=== PATIENT | female | born 1995 | race Caucasian/White ===

== ENCOUNTER 2019-03-12 16:06 | Inpatient (IN) | payer OTHER ==
[2019-03-12 17:26] VITALS: BMI 26.1
--- NOTE | 2019-03-12 18:06 | HP ---
CIWA Score - Admission Criteria OASAS Guidelines: Admission for Medically Managed Detox: Requires at least one of the followin. CIWA greater than 12 2. Seizures within the past 24 hours 3. Delirium tremens within the past 24 hours 4. Hallucinations within the past 24 hours 5. Acute intervention needed for co occurring medical disorder 6. Acute intervention needed for co occurring psychiatric disorder 7. Severe withdrawal that cannot be handled at a lower level of care (continued vomiting, continued diarrhea, abnormal vital signs) requiring intravenous medication and/or fluids 8. Admitting History and Physical - Admission History of Present Illness: 23 yo f w/ PMH juvenile epilepsy who comes to [facility] for ETOH rehab. She recently underwent detox at [facility] and was discharged today. The patient states that she drank 2x 6 packs of beer a day and an unknown amount of liquor 2-3 times per week since she was 13. The patient states that she has not blacked out in the past, but has had seizures while detoxing. Her last drink was on 03/07. The patient endorses smoking 2-3 blunts of marijuana 3 times per week while drinking since the age of 12. Her last use was 03/07. The patient has a history of epilepsy and is currently being followed by a Dr. Alley Olguin at [facility] for this. She gets her medication from [facility] ). Her medications have been verified from her prescription bottles as well as [facility] admission records. Per the patient, she was started on naltrexone during her most recent admission to [facility]. 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 Admission ROS [facility] Allergies/Adverse Reactions: Allergies Allergy/AdvReac Type Severity Reaction Status Date / Time No Known Allergies Allergy Verified 03/12/19 17:05 - Ebola screening Have you traveled outside of the country in the last 21 days: No Have you had contact with anyone from an Ebola affected area: No Do you have a fever: No - Review of Systems Respiratory: reports: No Symptoms reported Cardiac: reports: No Symptoms Reported GI: reports: No Symptoms Reported Musculoskeletal: reports: No Symptoms Reported Neuro: reports: No Symptoms reported Psychiatric: reports: No Sypmtoms Reported Patient History - Smoking Cessation Smoking history: Current every day smoker Have you smoked in the past 12 months: Yes Aproximately how many cigarettes per day: 15 Initiated information on smoking cessation: Yes 'Breaking Loose' booklet given: 03/12/19 - Substances abused Alcohol Substance route: Oral Frequency: 3-6 times per week Amount used: 2 packs / of six of beers/ mixing vodka/hennesy,not sure how much. Age of first use: 12 Date of last use: 03/06/19 Admission Physical Exam BHS - Vital Signs Vital Signs: Vital Signs - 24 hr 03/12/19 03/12/19 17:05 17:54 Temperature 97.5 F L 97.5 F L Pulse Rate 61 61 Respiratory 16 16 Rate Blood Pressure 92/63 92/63 - Physical General Appearance: Yes: Nourished HEENTM: Yes: EOMI, Normal ENT Inspection, Normocephalic, TOBIAS Respiratory: Yes: Chest Non-Tender, Lungs Clear, Normal Breath Sounds Neck: Yes: Trachea in good position Cardiology: Yes: Regular Rhythm, Regular Rate, S1, S2. No: JVD, Murmur, Gallop/ S3, Gallop/S4 Abdominal: Yes: Normal Bowel Sounds, Non Tender, Flat, Soft Neurological: Yes: banquet stewardess II-XII NML intact, Fully Oriented, Alert, Motor Strength 5/5, Normal Mood/Affect, Other (psychomotor slowing noted.) - Diagnostic (1) Alcohol dependence Current Visit: Yes Status: Acute (2) Epilepsy Current Visit: Yes Status: Acute Breathalyzer - Breathalyzer Breathalyzer: 0 Urine Drug Screen - Test Device Lot number: [id number] Expiration date: 10/11/20 - Control Is test valid?: Yes - Results Drug screen NEGATIVE: No Urine drug screen results: THC-Marijuana, BZO-Benzodiazepines Inpatient Rehab Admission - Rehab Decision to Admit Inpatient rehab admission?: Yes - Initial Determination Are CD services needed?: Yes Free of communicable disease: Yes Not in need of hospitalization: Yes - Rehab Admission Criteria Previous failed treatment: No Poor recovery environment: Yes Comorbidities: Yes Lacks judgement: Yes Patient is meeting Inpatient Rehab admission criteria:: Yes
--- NOTE | 2019-03-12 18:31 | PN ---
Teaching Attending Note Name of Resident: Mitchell Wright ATTENDING PHYSICIAN STATEMENT I saw and evaluated the patient. I reviewed the resident's note and discussed the case with the resident. I agree with the resident's findings and plan as documented. SUBJECTIVE: 23 yo with h/o AUD. completed alcohol detox here for rehab OBJECTIVE: Vital Signs - 24 hr 03/12/19 03/12/19 17:05 17:54 Temperature 97.5 F L 97.5 F L Pulse Rate 61 61 Respiratory 16 16 Rate Blood Pressure 92/63 92/63 alert and oriented not tremulous ASSESSMENT AND PLAN: AUD- completed detox and here for rehab pt without complaints
[2019-03-12] MEDS ORDERED: MAGNESIUM CITRATE 300 ML BOTTLE PO PRN (18:46)
[2019-03-12] MEDS ORDERED: IBUPROFEN 400 MG TABLET (FP) PO PRN (18:46)
[2019-03-12] MEDS ORDERED: LOPERAMIDE HCL 2 MG CAPSULE PO PRN (18:46)
[2019-03-12] MEDS ORDERED: guaiFENesin 200 MG/10 ML 10 ML UNIT-DOSE CUPS PO PRN (18:46)
[2019-03-12] MEDS ORDERED: MAGNESIUM HYDROX 2400MG/30ML ORAL SUSPENSION 30 ML CUP PO PRN (18:46)
[2019-03-12] MEDS ORDERED: MENTHOL/PHENOL 1 EACH UD MM PRN (18:46)
[2019-03-12] MEDS ORDERED: P-EPHED 60MG/TRIPROLIDI 2.5MG TABLET PO PRN (18:46)
[2019-03-12] MEDS ORDERED: ACETAMINOPHEN 325 MG TABLET (FP) PO PRN (18:46)
[2019-03-12] MEDS ORDERED: MAG HYDROX/AL HYDROX/SIMETH 30 ML UNIT-DOSE CUP PO PRN (18:46)
[2019-03-12] MEDS ORDERED: CLOBAZAM PO SCH ×2 (22:00→22:57)
[2019-03-12] MEDS: THIAMINE HCL 100 MG TABLET (FP) PO SCH (22:55)
[2019-03-12] MEDS ORDERED: PT OWN MED DRAWER 7, Y5N ONE (22:59)
--- NOTE | 2019-03-12 23:02 | PN ---
"[facility] Progress Note Note: Patient requesting her clobazam. Patient has been non compliant and last medication orders reviewed. 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 Patient Name: Juana Franz Date: 1995 Address: [address] [place] [address] Sex: Female Rx Written Rx Dispensed Drug Quantity Days Supply Prescriber Name 12/06/2018 12/19/2018 clobazam 20 mg tablet 60 30 Dilshad, Nidia J 07/27/2018 08/09/2018 clobazam 20 mg tablet 60 30 Dilshad, Nidia J 06/12/2018 06/12/2018 clobazam 20 mg tablet 45 30 Dilshad, Nidia J 04/18/2018 04/18/2018 clobazam 20 mg tablet 45 30 Alley Olguin Search Terms: Juana Franz, 1995 Search Date: 03/12/2019 11:01:19 PM States Searched: [place], [place], [place], [place], [place], [place], [place] The Drug Utilization Report below displays the controlled substance prescriptions, if any, that were dispensed in the indicated state(s). The information displayed on this report is compiled from requests submitted to other states' PMPs, and accurately reflects the information as returned by them. Blank king indicate data not provided by other state. This report was requested by: Maya Rubio | Reference #: [id number] There are no results for the search terms that you entered."
--- NOTE | 2019-03-13 08:42 | PN ---
[facility] Progress Note Note: Pt is a new admission to the unit yesterday from [facility]. Pt reports she has a primary care provider Dr. Alley Olguin at [facility] on [address], [place] who manages her seizure disorder. Pt is on Clobazam 40 mg po HS per admission orders. Reports last seizure was 03/05/19 while sleeping and did not go to the hospital. Reports her mom noticed it. The [facility] pharmacist, Mr. Virgen recommends splitting clobazam to 20 mg po BID. Discussed recommendation with Dr. Navarro and all agreed to split dose. Discussed with pt the poc and pt is agreeable as well. Vital Signs - 24 hr 03/12/19 03/12/19 03/13/19 17:05 17:54 00:30 Temperature 97.5 F L 97.5 F L Pulse Rate 61 61 Respiratory 16 16 16 Rate Blood Pressure 92/63 92/63 03/13/19 03/13/19 03:30 07:19 Temperature 97.8 F Pulse Rate 76 Respiratory 16 18 Rate Blood Pressure 91/62 Alert o x 3 nad oob ambulating with steady gait A/P new rehab pt Maintain safety seizure precautions increase po fluids as tolerated. addendum:Pt's own medication Clobazam is finished as per the pharmacist. Request to order from [facility]-pharmacy to continue pt's medication treatment.
[2019-03-13] MEDS ORDERED: PT OWN MED DRAWER 7, Y5N ONE (09:47)
--- NOTE | 2019-03-13 10:13 | EKG ---
Test Reason : Blood Pressure : / mmHG Vent. Rate : 050 BPM Atrial Rate : 050 BPM P-R Int : 140 ms QRS Dur : 084 ms QT Int : 436 ms P-R-T Axes : 068 049 050 degrees QTc Int : 397 ms SINUS BRADYCARDIA OTHERWISE NORMAL ECG NO PREVIOUS ECGS AVAILABLE Confirmed by MD Davian, Kennedy ([id number]) on 03/13/2019 10:13:04 AM Referred By: TRUDY Confirmed By:Kennedy Marcelo MD
[2019-03-13] MEDS: ZONISAMIDE 100 MG CAPSULE PO SCH (10:17)
[2019-03-13] MEDS: ESCITALOPRAM OXALATE 20 MG TABLET (FP) PO SCH (10:18)
[2019-03-13] MEDS: FOLIC ACID 1 MG TABLET (FP) PO SCH (10:18)
[2019-03-13] MEDS: PRENATAL VITAMINS W/ FOLIC ACID TABLET (FP) PO SCH (10:18)
[2019-03-13 12:18] LABS: HEMATOCRIT 41.9 % (32.4-45.2); HEMOGLOBIN 13.8 GM/dL (10.7-15.3); MCH 30.6 pg (25.7-33.7); MEAN CELL VOLUME 92.6 fl (80-96); MEAN PLT VOLUME 10.5 fl (7.5-11.1); PLATELET COUNT 182 K/MM3 (134-434); RBC 4.52 M/mm3 (3.60-5.2); WHITE BLOOD COUNT 5.8 K/mm3 (4.0-10.0)
[2019-03-13 12:20] LABS: ALBUMIN 3.6 g/dl (3.4-5.0); BILIRUBIN,TOTAL 0.2 mg/dL (0.2-1); BLOOD UREA NITROGEN 9.6 mg/dL (7-18); CREATININE 0.9 mg/dL (0.55-1.3); TOT PROT 7.4 g/dl (6.4-8.2)
[2019-03-13 14:36] LABS: URINE APPEARANCE CLOUDY; URINE BILIRUBIN NEGATIVE (NEGATIVE); URINE COLOR YELLOW; URINE GLUCOSE (UA) NEGATIVE (NEGATIVE); URINE KETONE NEGATIVE (NEGATIVE); URINE LEUK ESTERASE NEGATIVE (NEGATIVE); URINE NITRITE NEGATIVE (NEGATIVE); URINE PROTEIN NEGATIVE (NEGATIVE)
--- NOTE | 2019-03-13 14:53 | CONSULT ---
[facility] Psychiatric Consult - Data Date of interview: 03/13/19 Admission source: [facility] Identifying data: First visit to [facility] and direct admission from the community to [address] for this 23 y/o female, discharged from the detoxification unit at [facility] and referred for rehabilitation follow-up to address DESIREE issues (alcohol, nicotine, cannabis) co- morbid with mood disorder. Patient is single, no children, domiciled (lives with mother), unemployed and supported by relatives. Substance Abuse History: Discussed with the patient. Details in current [facility] report as follows : Smoking history: Current every day smoker. Have you smoked in the past 12 months: Yes. Aproximately how many cigarettes per day: 15. Initiated information on smoking cessation: Yes. 'Breaking Loose' booklet given : 03/12/19. - Substances abused. Alcohol. Substance route: Oral. Frequency: 3-6 times per week. Amount used: 2 packs / of six of beers/ mixing vodka/hennesy,not sure how much. Age of first use: 12. Date of last use: 03/06 Medical History: Medical profile is remarkable for seizure disorder (on anticonvulsant medications). Psychiatric History: Patient reports a distant history of one psychiatric hospitalization (age 12). Name of institution not recalled by the patient. Ms Franz declares that she " some difficulty remembering things." Not informative about her psychiatric diagnosis (but medications list shows lexapro 20 mg/day). Patient denies any contact with psychiatric OPD care providers (lexapro is prescribed by her primary care doctor). No reported history of suicide attempts. Physical/Sexual Abuse/Trauma History: Patient denies history of abuse. Additional Comment: Urine drug screen results: THC-Marijuana, BZO- Benzodiazepines. Noted. Mental Status Exam - Mental Status Exam Alert and Oriented to: Time, Place, Person Cognitive Function: Grossly Intact Patient Appearance: Well Groomed Mood: Withdrawn, Hopeful, Euthymic Affect: Appropriate, Normal Range Patient Behavior: Fatigued, Appropriate, Cooperative Speech Pattern: Clear Voice Loudness: Normal Thought Process: Goal Oriented Thought Disorder: Not Present Hallucinations: Denies Suicidal Ideation: Denies Homicidal Ideation: Denies Insight/Judgement: Fair Sleep: Well Appetite: Good Gait/Station: Normal Psychiatric Findings - Problem List ([place] 1, 2,3) (1) Alcohol dependence Current Visit: Yes Status: Chronic (2) Cannabis abuse Current Visit: Yes Status: Chronic (3) Nicotine dependence Current Visit: Yes Status: Chronic (4) History of depression Current Visit: Yes Status: Chronic Comment: Noted maintenance on lexapro. - Initial Treatment Plan Initial Treatment Plan: Interviewed in the presence of automatic presser, nursing staff development coordinator Rojas Flor (with full patient's consent). Psychoeducation. Sleep hygiene. AA meetings. Motivational counseling. Groups. Lexaprodiscussed. Patient is made aware of risks/benefits of the drug. She consents (verbally) to the continuation of that medication. Observation.
[2019-03-13] MEDS: THIAMINE HCL 100 MG TABLET (FP) PO SCH (21:34)
[2019-03-13] MEDS: cloBAZam 10 MG TABLET PO SCH (21:36)
[2019-03-14] MEDS ORDERED: PT OWN MED DRAWER 7, Y5N ONE (08:52)
[2019-03-14] MEDS: FOLIC ACID 1 MG TABLET (FP) PO SCH (09:01)
[2019-03-14] MEDS: ESCITALOPRAM OXALATE 20 MG TABLET (FP) PO SCH (09:01)
[2019-03-14] MEDS: PRENATAL VITAMINS W/ FOLIC ACID TABLET (FP) PO SCH (09:01)
[2019-03-14] MEDS: cloBAZam 10 MG TABLET PO SCH ×2 (09:02→21:16)
[2019-03-14] MEDS: ZONISAMIDE 100 MG CAPSULE PO SCH (09:34)
[2019-03-14] MEDS: MELATONIN 5 MG TABLETS PO PRN (21:13)
[2019-03-14] MEDS: THIAMINE HCL 100 MG TABLET (FP) PO SCH (21:13)
[2019-03-15] MEDS ORDERED: PT OWN MED DRAWER 7, Y5N ONE ×2 (08:46→21:07)
[2019-03-15] MEDS: PRENATAL VITAMINS W/ FOLIC ACID TABLET (FP) PO SCH (10:01)
[2019-03-15] MEDS: FOLIC ACID 1 MG TABLET (FP) PO SCH (10:01)
[2019-03-15] MEDS: ESCITALOPRAM OXALATE 20 MG TABLET (FP) PO SCH (10:02)
[2019-03-15] MEDS: ZONISAMIDE 100 MG CAPSULE PO SCH (10:02)
[2019-03-15] MEDS: cloBAZam 10 MG TABLET PO SCH ×2 (10:03→21:11)
[2019-03-15] MEDS: THIAMINE HCL 100 MG TABLET (FP) PO SCH (21:10)
[2019-03-15] MEDS: MELATONIN 5 MG TABLETS PO PRN (21:11)
[2019-03-16 06:53] VITALS: BP 94/54; PULSE 65; TEMP 97.8
--- NOTE | 2019-03-16 08:44 | DS ---
[facility] Rehab Discharge Summary - [facility] Rehab Discharge Summary Admission Date: 03/12/19 Discharge Date: 03/16/19 - History Present History: Alcohol dependence, Cannabis dependence Additional Comments: Pt is a 23 y/o female with a hx of AUD admitted to rehab on 03/12/19 and requesting to sign out today for personal reasons stating her mother is leaving for the and will be going to her sister. All efforts to encourage pt to stay in treatment to get the full benefit of treatment and reflection on next plan of care was unsuccessful. Pt was also spoken to by her counselor, ms. Daniel Gipson and the Nurses, Ms. Saadia Cohen and Ms. Fozia Ruiz to no avail. Pt reports she has a primary care provider Dr. Alley Olguin at [facility] on [address] [place] [address] for medical management. Pertinent Past History: Seizure disorder Depression - Discharge Physical Exam Vital Signs: Vital Signs Temperature 97.8 F 03/16/19 06:52 Pulse Rate 65 03/16/19 06:52 Respiratory Rate 18 03/16/19 06:52 Blood Pressure 94/54 L 03/16/19 06:52 O2 Sat by Pulse Oximetry (%) Alert o x 3, denies s/h/i nad oob with steady gait(more alert,well rested than on admission) cardiac:s1 s2,rrr lungs:cta,russell. abdomen:soft,+bs,nt,nd extremities/skin:no edema/skin intact Pertinent Admission Physical Exam Findings: safety maintained admitted on 03/12/19 and declined further treatment. - Treatment Discharge Condition: Discharge condition good - Medication Discharge Medications: Ambulatory Orders Calcium 600 mg Plus Vit D Tab 1 tablet PO DAILY 03/12/19 Clobazam 2 tab PO HS 03/12/19 Escitalopram Oxalate [Lexapro -] 1 tablet PO DAILY 03/12/19 Folic Acid 1 mg PO DAILY 03/12/19 Naltrexone HCl 50 mg PO DAILY 03/12/19 Zonisamide 100 mg PO DAILY 03/12/19 - Medication-Assisted Treatment (MAT) Medication-Assisted Treatment (MAT): No - Discharge Instructions Diet, activity, other medical instructions: Diet:Regular Activity: oob ad saul Other medical instructions:follow up with CD aftercare recommendation as scheduled. Follow up with your primary care doctor, Dr. Alley Olguin at [facility] within 1 week after discharge. - Diagnosis (1) Epilepsy Status: Chronic Qualifiers: Epilepsy type: unspecified (2) Alcohol dependence Status: Chronic Qualifiers: Substance use status: uncomplicated Qualified Code(s): F10.20 - Alcohol dependence, uncomplicated (3) Cannabis abuse Status: Chronic (4) Nicotine dependence Status: Chronic Qualifiers: Nicotine product type: cigarettes Substance use status: uncomplicated Qualified Code(s): F17.210 - Nicotine dependence, cigarettes, uncomplicated - Follow-up Referral Minutes to complete discharge: 20 - AMA Did Patient Leave Against Medical Advice: Yes Additional Comments: Pt has own medications and states she has no need for courtesy Rx today. Pt will follow up with her primary care Dr. alley Olguin for medical management.
== END 2019-03-16 09:00 | disposition left against medical advice (07) | DRG 770 ==
LOC: YASAS 16:06 → Y3E 19:04
PROVIDERS: ADMIT Neuromusculoskeletal Medicine & OMM; ATTEND Neuromusculoskeletal Medicine & OMM
PROC: HZ42ZZZ Group Counseling for Substance Abuse Treatment, Cognitive-Behavioral (ICD-10-PCS; principal; 2019-03-12)
DX: F10.20 Alcohol dependence, uncomplicated (principal); F12.10 Cannabis abuse, uncomplicated; F17.210 Nicotine dependence, cigarettes, uncomplicated; G40.909 Epilepsy, unspecified, not intractable, without status epilepticus; Z91.14 Patient's other noncompliance with medication regimen
CPT/HCPCS: 36415; 80053; 81003; 81025; 85027; 86593; 93005; 93010